=== PATIENT | female | born 1965 | race Caucasian/White ===

== ENCOUNTER 2016-12-30 15:09 | Emergency (ER) | payer OTHER ==
--- NOTE | 2016-12-30 16:00 | DIAGNOSTIC IMAGING REPORT ---
PROCEDURE: XR CHEST 2 VIEW INDICATION: CHEST PAIN TECHNIQUE: PA and lateral views. COMPARISON: None. FINDINGS: Lungs are clear. Heart and mediastinum are normal. Thorax is normal. IMPRESSION: 1. Negative chest.
--- NOTE | 2016-12-30 17:59 | DIAGNOSTIC IMAGING REPORT ---
PROCEDURE: CTA THORAX ABDOMEN INDICATION: DISSECTION TECHNIQUE: 100 ml of Isovue 370 injected intravenously and axial images were obtained through the entire thorax and abdomen with 3D MIP sagittal and coronal reformations. COMPARISON: None. FINDINGS: THORACIC AORTA AND GREAT VESSELS: Normal without calcific atherosclerosis, dissection or aneurysm. THORAX: Lungs are clear. No adenopathy or effusion. Normal pulmonary arteries. Normal heart size. Mild degenerative changes of the spine. ABDOMEN AORTA AND MESENTERIC VESSELS: Normal abdominal aorta without calcific atherosclerosis, dissection or aneurysm. Normal celiac trunk, SMA, FAWAD and iliac vessels. ABDOMEN: Cholecystectomy. Liver, pancreas, spleen, adrenal glands and the right kidney are normal. Severe left renal atrophy versus hypoplasia. Nonspecific bowel gas pattern. Normal appendix. Bones are unremarkable. IMPRESSION: 1. No evidence of an aortic dissection or aneurysm. 2. Cholecystectomy 3. Severe left renal atrophy versus hypoplasia 4. Results discussed with CHERYL Rogers All CT scans at this facility use dose modulation, iterative reconstruction, and/or weight-based dosing when appropriate to reduce radiation dose to as low as reasonably achievable.
--- NOTE | 2016-12-30 18:05 | ED ORDER SUMMARY ---
..... Patient: ADITYA CHAVEZ OrderSheet [facility] VisitID: [id number] [address] [place] [address] 51y, F Registration Date/Time: 12/30/2016 ORDER SHEET Weight: 58.9 kg (stated) Allergies: No Known Drug Allergy GENERAL ORDERS: Chest 2V Urgent (15:36 12/30/2016 EKoroleva P.A.-C) (Ack 15:40 KHoerner) (15:49 MCook R.N.) Cardiac Panel Stat (15:37 12/30/2016 EKoroleva P.A.-C) (Ack 15:40 KHoerner) (15:43 MCook R.N.) Plate Maker (Continuous) (15:37 12/30/2016 EKoroleva P.A.-C) (15:39 AMcQuoid ER Tech1) EKG - ER Stat (15:37 12/30/2016 EKoroleva P.A.-C) (15:39 AMcQuoid ER Tech1) CTA Thorax/Abdomen (No) (see lab) Urgent (16:38 12/30/2016 EKoroleva P.A.-C) (Ack 16:40 AMcQuoid ER Tech1) (17:39 KHoerner) MEDICATION ORDERS: KCl PO 40 meq (NOW) (17:25 12/30/2016 EKoroleva P.A.-C) (Ack 17:55 Kalina R.N.) (17:59 Kalina R.N.) IV FLUIDS: IV Saline Lock (15:37 12/30/2016 EKoroleva P.A.-C) (15:43 MCook R.N.) Metoprolol IV 5 mg (HIGH ALERT MEDICATION, NOW) (15:37 12/30/2016 EKoroleva P.A.-C) (Ack 15:49 MCook R.N.) (16:01 LWhalen R.N.) ORDER SHEET NOTES: [Electronically signed by Gladys Hernández PJoseA.-C (18:38 12/30/2016)] [Electronically signed by Stanley Parra R.N. (19:12/30/2016)] [Electronically locked/signed by Stanley Parra R.N. (:12/30/2016)]
--- NOTE | 2016-12-30 18:05 | ED NURSING NOTES ---
Clinical Report - Nurses [facility] [address] [place] [address] 12/30/2016 15:17 Patient: ADITYA CHAVEZ [facility]#: [id number] TRIAGE Triage time 15:Dec 30 2016. Acuity: LEVEL 2. Chief Complaint: CHEST PAIN and DISCOMFORT. JP COMA SCORE: Jp Coma Scale: 15- eyes open spontaneously (4); best verbal response- oriented x 4 (5); best motor response- obeys commands (6). --15:29 Stanley Parra R.N. 15:12/30/16. BP: 190/126. HR: 80. RR: 18. O2 saturation: 98%. Additional comments: left arm . --15:29 Stanley Parra R.N. 15:12/30/16. BP: 184/94. HR: 63. RR: 18. O2 saturation: 98%. Additional comments: right sided BP. --15:29 Stanley Parra R.N. 15:12/30/16. Temp: 98.0 F. Pain level now 01/15. --18:32 Stanley Parra R.N. Weight: 58.9 kg stated. Height/Length: 61 inches Per Patient. BMI: 24.5. --15:29 Stanley Parra R.N. Medications HCTZ. --15:27 Stanley Parra R.N. Metoprolol Tartrate Oral. --15:27 Stanley Parra R.N. ZyrTEC Allergy Oral. --15:27 Stanley Parra R.N. Allergies No Known Drug Allergy. --15:27 Stanley Parra R.N. History Arrived by private vehicle. Historian: patient. Accompanied by family. ( Has been having chest pain for 4 days. Has had a very stressful past couple of weeks with of father and with medical problems. No activity makes pain worse.). She has had a cough. No nausea, vomiting or fever. PAST MEDICAL HX: Hypertension. No history of diabetes mellitus, heart disease or lung disease. Immunizations: up-to-date. The patient is post-menopausal. SOCIAL HX: Never smoker. No alcohol use or drug use. SELF HARM ASSESSMENT: A self harm assessment was performed. The patient answered "yes" to the question "Have you recently felt down, depressed, or hopeless?" and "no" to the question "Do you have thoughts of harming or killing yourself?". FALL RISK ASSESSMENT: Fall risk assessment completed. No fall risk identified. NUTRITIONAL RISK ASSESSMENT: The nutritional risk assessment revealed no deficiencies. FUNCTIONAL ASSESSMENT: Functional assessment: no impairments noted. LEARNING NEEDS ASSESSMENT: The learning needs assessment revealed no barriers. ABUSE ASSESSMENT: Abuse assessment: (yes) The patient was asked "Do you feel safe in your home?". SKIN INTEGRITY ASSESSMENT: Skin integrity risk assessment completed. No skin integrity risk identified. --15:29 Stanley Parra R.N. PROBLEMS: Gallstone(s). High blood pressure . --15:28 Stanley Parra R.N. ADDITIONAL SURGERIES: Gallbladder Surgery. --15:28 Stanley Parra R.N. Interventions ID band on patient. --15:29 Stanley Parra R.N. PHYSICAL ASSESSMENT Ambulatory to room. GENERAL / NEURO / PSYCH: Alert. Oriented X 4. Appears in no acute distress. Appears anxious. HEENT: Mucous membranes are pink. RESPIRATORY: Respirations not labored. Chest nontender. Breath sounds within normal limits. CVS: Normal sinus rhythm noted. Heart sounds within normal limits. Pulses within normal limits. Capillary refill less than 2 seconds. GI / : Abdomen soft and nontender. ( Last BM yesterday and normal.). EXTREMITIES: No lower extremity edema. SKIN: Skin is warm and dry. Normal skin turgor. Skin is non-tender. --15:30 Stanley Parra R.N. NURSING PROGRESS NOTES 15:12/30/16. BP: 197/102. HR: 72. RR: 18. O2 saturation: 98%. Pain level now 7/10. --15:31 Stanley Parra R.N. 15:29 12/30/16. BP: 184/94. HR: 63. RR: 18. O2 saturation: 98%. Additional comments: right sided BP. --15:31 Stanley Parra R.N. The plan of care for this patient has been created. campus monitor, pulse oximeter and NIBP monitor placed on patient. Patient gowned. Reassurance given. Call light placed in reach. Side rails up x 1. Bed placed in lowest position. Brakes of bed on. --15:32 Stanley Parra R.N. 15:28. EKG was performed by a tech. --15:40 McQuoid, Bharati, ER Tech1 15:43 12/30/2016 Site #1 started via IV in the right antecubital space with an 20g angiocath, with aseptic technique and good blood return; two attempts. Blood drawn: rainbow set. Labeled in the presence of the patient and sent to the lab. Saline lock flushed with 10 mL saline. --15:43 Erich España R.N. Patient transported to radiology by stretcher with tech. --15:46 Erich España R.N. Patient returned from radiology by stretcher with tech. --15:50 Erich España R.N. 16:01 12/30/2016 Metoprolol (Metoprolol Tartrate) IVP 5 mg given over 2 minute(s) via site #1. Allergies verified and confirmed 5 rights. IV patency established. IV site checked: no pain, redness, or swelling. IV flushed thoroughly pre- and post-medication administration. --16:01 Stanley Parra R.N. 16:15 12/30/16. BP: 146/84. HR: 55. RR: 18. O2 saturation: 98%. 16:00 12/30/16. BP: 139/88. HR: 56. RR: 18. O2 saturation: 98%. 15:45 12/30/16. BP: 148/89. HR: 56. RR: 18. O2 saturation: 100%. --16:28 Stanley Parra R.N. 17:59 12/30/2016 KCL (Potassium Chloride ER) PO Tablets 40 meq given. Allergies verified and confirmed 5 rights. --17:59 Shivani Nieves R.N. 18:00 12/30/16. BP: 126/84. HR: 58. RR: 18. O2 saturation: 98%. 17:30 12/30/16. BP: 135/91. HR: 60. RR: 18. O2 saturation: 98%. 17:00 12/30/16. BP: 129/84. HR: 58. RR: 20. O2 saturation: 97%. --18:31 Stanley Parra R.N. DISPOSITION / DISCHARGE 18:19 12/30/2016 Site #1 removed upon discharge. Catheter intact. Pressure dressing applied. --18:29 Stanley Parra R.N. Departure time: 18:Dec 30 2016. Condition at departure: improved. No learning barriers present. Discharge instructions provided and reviewed with the patient. Reviewed warnings. Reviewed medication(s). Treatments reviewed. Reviewed referrals. Verbalized understanding. Written instructions provided in Ukrainian. The patient was discharged home and accompanied by spouse. She left the Emergency Department ambulatory and via private vehicle. Spouse driving. --18:29 Stanley Parra R.N. 18:28 12/30/16. BP: 129/84. HR: 56. RR: 18. O2 saturation: 98%. Temp: 98.6 F. Pain level now 0/10. --18:29 Stanley Parra R.N. Locked/Released at 12/30/2016 19:09 by Stanley Parra R.N.
--- NOTE | 2016-12-30 18:05 | ED ORDER SUMMARY ---
..... Patient: ADITYA CHAVEZ OrderSheet [facility] VisitID: [id number] [address] [place] [address] 51y, F Registration Date/Time: 12/30/2016 ORDER SHEET Weight: 58.9 kg (stated) Allergies: No Known Drug Allergy GENERAL ORDERS: Chest 2V Urgent (15:36 12/30/2016 EKoroleva P.A.-C) (Ack 15:40 KHoerner) (15:49 MCook R.N.) Cardiac Panel Stat (15:37 12/30/2016 EKoroleva P.A.-C) (Ack 15:40 KHoerner) (15:43 MCook R.N.) Rod And Tube Straightener (Continuous) (15:37 12/30/2016 EKoroleva P.A.-C) (15:39 AMcQuoid ER Tech1) EKG - ER Stat (15:37 12/30/2016 EKoroleva P.A.-C) (15:39 AMcQuoid ER Tech1) CTA Thorax/Abdomen (No) (see lab) Urgent (16:38 12/30/2016 EKoroleva P.A.-C) (Ack 16:40 AMcQuoid ER Tech1) (17:39 KHoerner) MEDICATION ORDERS: KCl PO 40 meq (NOW) (17:25 12/30/2016 EKoroleva P.A.-C) (Ack 17:55 Kalina R.N.) (17:59 Kalina R.N.) IV FLUIDS: IV Saline Lock (15:37 12/30/2016 EKoroleva P.A.-C) (15:43 MCook R.N.) Metoprolol IV 5 mg (HIGH ALERT MEDICATION, NOW) (15:37 12/30/2016 EKoroleva P.A.-C) (Ack 15:49 MCook R.N.) (16:01 LWhalen R.N.) ORDER SHEET NOTES: [Electronically signed by Gladys Hernández PJoseA.-C (18:38 12/30/2016)] [Electronically signed by Stanley Parra R.N. (19:12/30/2016)] [Electronically locked/signed by Stanley Parra R.N. (:12/30/2016)]
--- NOTE | 2016-12-30 18:05 | ED CLINICAL REPORT ---
Clinical Report - Physicians/Mid Levels [facility] [address] [place] [address] 12/30/2016 15:17 Patient: [facility] [id number] Time Seen: 15:39 Dec 30 2016. Arrived- By private vehicle. Historian- patient. HISTORY OF PRESENT ILLNESS Chief Complaint: CHEST PAIN. It is described as located in the central chest and left chest area. This started 4 days and is still present. No nausea, difficulty breathing or diaphoresis. (Patient reports off and on chest pain that is sharp in nature and left-sided localized over the last 4 days. Onset of symptoms was this Tuesday, had some pain on Tuesday and again this morning, with low activity. Patient denies any shortness of breath. Denies any nausea or vomiting. Patient under increased stress under the circumstances her father has recently been disease, and has been with multiple medical problems. Patient with no recent travel. Denies history of PE. Denies history of similar pain. Patient was long-standing history of hypertension.). REVIEW OF SYSTEMS No fever, cough, pedal edema, abdominal pain or black stools. All systems otherwise negative, except as recorded above. PAST HISTORY Problems: Hypertension. Gallstone(s). High blood pressure . Additional Surgeries: Gallbladder Surgery. Medications: ZyrTEC Allergy Oral. Metoprolol Tartrate Oral. HCTZ. Allergies: No Known Drug Allergy. SOCIAL HISTORY Never smoker. No alcohol use or drug use. ADDITIONAL NOTES The nursing notes have been reviewed. PHYSICAL EXAM Vital Signs: 12/30/2016 15:29 BP: 184/94. HR: 63. RR: 18. O2 saturation: 98%. 12/30/2016 15:22 BP: 190/126. HR: 80. RR: 18. O2 saturation: 98%. Appearance: Alert. Eyes: Eyes normal inspection. ENT: Nose normal. Pharynx normal. No pharyngeal erythema or tonsillar exudate. Neck: Normal inspection. No meningeal signs. CVS: Normal heart rate and rhythm. Heart sounds normal. Respiratory: No respiratory distress. Breath sounds normal. No chest pain reproduced on physical exam or decreased air movement. Abdomen: Soft and nontender. No rebound tenderness or distention. Back: Normal external inspection. Skin: Skin warm. Normal skin color. Neuro: Oriented X 3. LABS, X-RAYS, AND EKG EKG: EKG time: (1528). No acute process. No acute ischemia. Rate: 71. Normal P waves. Normal YNES. Normal QRS complex. Normal axis. Normal ST and T waves and QT. The study has been interpreted contemporaneously. The study has been independently viewed by me. The EKG appears to be a good tracing. Chest X-ray: (IMPRESSION: 1. Negative chest. Electronically Final signed by:Raulito Floyd MD 12/30/2016 4:01:05 PM). Laboratory Tests: CBC w Diff: (MEHNAZ: 12/30/2016 15:37) ( MsgRcvd 12/30/2016 15:53) Final results Test Result Flag Units (Reference) WHITE BLOOD COUNT 6.6 K/uL (4.5-11.5) RED BLOOD COUNT 4.88 M/uL (4.00-5.20) HEMOGLOBIN 15.1 gm/dL (12.0-16.0) HEMATOCRIT 44.1 % (36.0-46.0) MEAN CELL VOLUME 90 fL (80-100) MEAN CORPUSCULAR HGB 31 pg (26-34) MEAN CORPUSCULAR HGB CONC 34 g/dL (31-37) RED CELL DISTRIBUTION WIDTH 12.4 % (11.6-14.8) PLATELET COUNT 253 K/uL (150-400) NEUTROPHIL % 55.9 % (50-75) LYMPH % 36.6 % (25-40) MONO % 5.0 % (3-14) EOSINOPHIL % 2.0 % (0-4) BASOPHIL % 0.5 % (0-2) . PROGRESS AND PROCEDURES Course of Care: Patient with ongoing chest pain over the last few weeks. In the ER her pain is limited. Given her hypertensive status, we'll obtain CT to rule out dissection as patient has been having pain radiating to her back. Her stress has been increased. She is not short of breath, resting comfortably, side and heart rate are greatly here in the emergency department. Given duration of symptoms ACS, PE less likely. Patient with no signs of infectious process. Nonreproducible pain. 12/30/2016 18:28 BP: 129/84. HR: 56. RR: 18. O2 saturation: 98%. Temp: 98.6 F. 12/30/2016 16:15 BP: 146/84. HR: 55. RR: 18. O2 saturation: 98%. 12/30/2016 16:00 BP: 139/88. HR: 56. RR: 18. O2 saturation: 98%. 12/30/2016 15:45 BP: 148/89. HR: 56. RR: 18. O2 saturation: 100%. 12/30/2016 15:31 BP: 197/102. HR: 72. RR: 18. O2 saturation: 98%. Patient is stable. Symptoms better. Patient/family counseled. Differential Diagnosis: I considered muscle strain, costochondritis, pleurisy, intercostal neuritis, herpes zoster, myocardial infarction, intermediate coronary syndrome, unstable angina, aortic dissection, mitral valve prolapse, pulmonary embolism, pneumonia, pneumothorax, lung cancer and gastroesophageal reflux disease as a possible cause of chest pain in this patient. This is a partial list of diagnoses considered. Disposition: Discharged. CLINICAL IMPRESSION Atypical chest pain Uncontrolled hypertension. Hypokalemia INSTRUCTIONS Avoid stimulants (such as cigarettes, coffee, cold medicines, sinus medicines, street drugs). Follow a low salt diet. Do not smoke. No alcohol. Prescription Medications: Klor-Con 10 mEq: take 1 tablet orally every 8 hours. Dispense twenty (20). No refills. Substitution is permissible. Follow-up: Follow up with your doctor in five days. (Electronically signed by Gladys Hernández P.A.-C 12/30/2016 18:38)
--- NOTE | 2016-12-30 19:10 | ED MAR SUMMARY ---
..... Medication Administration Record [facility] [address] [place] [address] Patient: ADITYA CHAVEZ Visit ID: [id number] 51y, F Weight: 58.9 kg Height/Length: 61 in BMI: 24.5 ALLERGIES: No Known Drug Allergy Given 16:01 12/30/2016 Stanley Parra RRoberta Medication Administered: METOPROLOL [IVP] (METOPROLOL TARTRATE), Dose: 5 mg IVP over 2 minute(s), Site: #1 right AC. Medication Ordered: Metoprolol IV 5 mg (HIGH ALERT MEDICATION, NOW). Given 17:59 12/30/2016 Shivani Nieves R.N. Medication Administered: KCL [PO] (POTASSIUM CHLORIDE ER), Dose: 40 meq Tablets PO. Medication Ordered: KCl PO 40 meq (NOW).
--- NOTE | 2016-12-30 19:10 | ED MED RECONCILIATION SUMMARY ---
Patient: ADITYA CHAVEZ Medication Reconciliation Report [facility] VisitID: [id number] [address] [place] [address] 51y, F Registration Date/Time: 12/30/2016 Weight: 58.9 kg Height/Length: 61 in. BMI: 24.5 ALLERGIES: No Known Drug Allergy The patient's Home Medications are listed below: THE FOLLOWING MEDICATIONS NEED TO BE RECONCILED: HCTZ Metoprolol Tartrate Oral ZyrTEC Allergy Oral The source(s) of the original Home Medication information: Not obtained. The following Medications were given to the patient in the Emergency Department: Metoprolol [IVP] IVP 5 mg, administered: 12/30/2016 4:01:00 PM KCL [PO] PO 40 meq, administered: 12/30/2016 5:59:00 PM The following Medications were prescribed to the patient: Klor-Con 10 mEq: take 1 tablet orally every 8 hours. Dispense twenty (20). No refills. Substitution is permissible. -- Gladys Hernández, PJoseA.-C
--- NOTE | 2016-12-30 19:10 | ED MED RECONCILIATION SUMMARY ---
Patient: ADITYA CHAVEZ Medication Reconciliation Report [facility] VisitID: [id number] [address] [place] [address] 51y, F Registration Date/Time: 12/30/2016 Weight: 58.9 kg Height/Length: 61 in. BMI: 24.5 ALLERGIES: No Known Drug Allergy The patient's Home Medications are listed below: THE FOLLOWING MEDICATIONS NEED TO BE RECONCILED: HCTZ Metoprolol Tartrate Oral ZyrTEC Allergy Oral The source(s) of the original Home Medication information: Not obtained. The following Medications were given to the patient in the Emergency Department: Metoprolol [IVP] IVP 5 mg, administered: 12/30/2016 4:01:00 PM KCL [PO] PO 40 meq, administered: 12/30/2016 5:59:00 PM The following Medications were prescribed to the patient: Klor-Con 10 mEq: take 1 tablet orally every 8 hours. Dispense twenty (20). No refills. Substitution is permissible. -- Gladys Hernández, PJoseA.-C
--- NOTE | 2016-12-30 19:10 | ED DISCHARGE INSTRUCTIONS ---
Patient: ADITYA CHAVEZ General Instructions [facility] VisitID: [id number] [address] [place] [address] 51y, F Registration Date/Time: 12/30/2016 Atypical chest pain Uncontrolled hypertension. Hypokalemia INSTRUCTIONS Avoid stimulants (such as cigarettes, coffee, cold medicines, sinus medicines, street drugs). Follow a low salt diet. Do not smoke. No alcohol. Prescription Medications: Klor-Con 10 mEq: take 1 tablet orally every 8 hours. Dispense twenty (20). No refills. Substitution is permissible. Follow-up: Follow up with your doctor in five days. ADDITIONAL INFORMATION Chest Pain, Noncardiac Based on your visit today, the exact cause of your chest pain is not certain. Your condition does not seem serious and your pain does not appear to be coming from your heart. However, sometimes the signs of a serious problem take more time to appear. Therefore, please watch for the warning signs listed below. Home Care: Rest today and avoid strenuous activity. Take any prescribed medicine as directed. Follow Up with your doctor or this facility as instructed or if you do not start to feel better within 24 hours. Get Prompt Medical Attention if any of the following occur: A change in the type of pain: if it feels different, becomes more severe, lasts longer, or begins to spread into your shoulder, arm, neck, jaw or back Shortness of breath or increased pain with breathing Cough with dark colored sputum (phlegm) or blood Weakness, dizziness, or fainting Fever of 100.4F (38C) or higher, or as directed by your healthcare provider Swelling, pain or redness in one leg Chest Pain, Uncertain Cause Chest pain can happen for a number of reasons. Sometimes the cause can not be determined. If yourcondition does not seem serious, and your pain does not appear to be coming from your heart, your doctor may recommend watching it closely. Sometimes the signs of a serious problem take more time to appear. Therefore, watch for the warning signs listed below. Home care After your visit, follow these recommendations: Rest today and avoid strenuous activity. Take any prescribed medicine as directed. Follow-up care Follow up with your doctor or this facility as instructed or if you do not start to feel better within 24 hours. Call 911 Get immediate medical attention if any of the following occur: A change in the type of pain: if it feels different, becomes more severe, lasts longer, or begins to spread into your shoulder, arm, neck, jaw or back Shortness of breath or increased pain with breathing Weakness, dizziness, or fainting Rapid heart beat Get prompt medical attention Call your doctor right away if any of the following occur: Cough with dark colored sputum (phlegm) or blood Fever of 100.4F(38C) or higher, or as directed by your health care provider Swelling, pain or redness in one leg High Blood Pressure --Established High Blood Pressure (Hypertension) is a chronic disease. The cause is unknown in most cases. It can usually be controlled with lifestyle changes and/or medicines. Symptoms of high blood pressure may include headache, dizziness, visual changes, chest pain and shortness of breath. Sometimes it causes no symptoms at all. However, even if there are no symptoms, untreated high blood pressure increases the risk of heart attack, also known as acute myocardial infarction, or AMI, and stroke. It is a serious health risk and should not be ignored. A normal blood pressure is 120/80 or less. The first (top) number is the "systolic" pressure. The second (bottom) number is the "diastolic" pressure. Hypertension exists when either the top number is 140 or higher, OR the bottom number is 90 or higher on repeated measurements. Home Care: All patients with high blood pressure should do the following to lower their pressure. If you are on medicines, then these methods may reduce or eliminate your need for medicines in the future. Begin a weight loss program if you are overweight. Reduce your salt intake. Avoid high salt foods (olives, pickles, smoked meats, salted potato chips, etc.). Do not add salt to your food at the table. Use only small amounts of salt when cooking. Begin an exercise program. Discuss with your doctor what type of exercise program would be best for you. It doesn't have to be difficult. Even brisk walking for 20 minutes three times a week is a good form of exercise. Avoid medicines which contain heart stimulants. This includes many cold and sinus decongestant pills and sprays as well as diet pills. Check the warnings about hypertension on the label. Stimulants such as amphetamine or cocaine could be lethal for someone with hypertension. Never take these. Limit your caffeine intake or switch to caffeine-free products. Stop smoking. If you are a long-time smoker, this can be hard. Enroll in a stop-smoking program to improve your chance of success. Learning how to handle stress better is an important part of any program to lower blood pressure. Learn about relaxation methods such as meditation, yoga or biofeedback. If medicines were prescribed, take them exactly as directed. Missing doses may cause your blood pressure get out of control. Consider buying an automatic blood pressure machine (available at most pharmacies). Use this to monitor your blood pressure at home and report the results to your doctor. Follow Up: Regular visits to your own physician for blood pressure checks and medicine adjustment is an important part of your care. Make a follow-up appointment as directed by our staff. Get Prompt Medical Attention if any of the following occur: Chest pain or shortness of breath Severe headache Throbbing or rushing sound in the ears Nosebleed Sudden severe abdominal pain Extreme drowsiness, confusion or fainting Dizziness or vertigo (dizziness with spinning sensation) Weakness of an arm or leg or one side of the face Difficulty with speech or vision Hypertension, Out Of Control (Established) Your blood pressure was unusually high today. This can occur as a result of missing doses of your blood pressure medicine. Some asthma inhalers, decongestants, diet pills, and street drugs such as cocaine and amphetamine can worsen hypertension. An increase in body weight, increase in salt intake, smoking, and caffeine are other causes. Emotional upset or acute pain can cause a sudden rapid rise in blood pressure which may return to normal after a period of rest. A normal blood pressure is less than 140/90. The first (top) number is the systolic pressure. The second (bottom) number is the diastolic pressure. Hypertension exists when either the top number is 140 or higher, OR the bottom number is 90 or higher on repeated measurements. Home Care: All patients with high blood pressure should do the following to lower their pressure. If you are on blood pressure medicines, then these methods may reduce or eliminate your need for medicines in the future. Begin a weight-loss program if you are overweight. Reduce your salt intake. Avoid high-salt foods (olives, pickles, smoked meats, salted potato chips, etc.). Do not add salt to your food at the table. Use only small amounts of salt when cooking. Begin an exercise program. Discuss with your doctor what type of exercise program would be best for you. It doesnt have to be difficult. Even brisk walking for 20 minutes3 times a week is a good form of exercise. Avoid medicines which contain heart stimulants. This includes many cold and sinus decongestant pills and sprays as well as diet pills. Check the warnings about hypertension on the label. Stimulants such as amphetamine or cocaine could be lethal for someone with hypertension. Never take these. Limit your caffeine intake or switch to decaf. Stop smoking. If you are a long-time smoker, this can be hard. Enroll in a stop-smoking program to improve your chance of success. Talk to your physician about ways to improve your chance of success. Learning how to handle stress better is an important part of any program to lower blood pressure. Learn about relaxation methods such as meditation, yoga, or biofeedback. If medicines were prescribed, take them exactly as directed. Missing doses may cause your blood pressure to get out of control. Consider buying an automatic blood pressure machine (available at many pharmacies). Use this to monitor your blood pressure and report to your doctor. Follow Up: Regular visits to your own doctor for blood pressure checks and medicine adjustment is an important part of your care. Make a follow-up appointment as directed by our staff. Get Prompt Medical Attention if any of the following occur: Chest, arm, shoulder, neck, or upper back pain Shortness of breath Severe headache Throbbing or rushing sound in the ears Nosebleed Extreme drowsiness, confusion, or fainting Dizziness or vertigo (dizziness with spinning sensation) Weakness of an arm or leg or one side of the face Difficulty with speech or vision Hypokalemia Hypokalemia means a low level of potassium in the blood. This most often occurs in patients who take diuretics (water pills). It can also occur due to severe vomiting or diarrhea. A mild case usually causes no symptoms. It is only found with blood testing. More severe potassium loss causes generalized weakness, muscle or abdominal cramping, heart palpitations (rapid or irregular heartbeats) and low blood pressure. Home Care: 1) Take any potassium supplements prescribed. 2) Eat foods rich in potassium. The highest amount is found in artichoke, baked potatoes, spinach, cantaloupe, honeydew melon, cod, halibut, salmon, and scallops. White, red, or negron beans are also very good sources. A modest amount is found in orange juice, bananas, carrots, and tomato juice. 3) Certain types of diuretics (water pills), such as Lasix (furosemide), require that you take potassium supplements for as long as you take the diuretic pills. If you are taking a diuretic, discuss the need for potassium supplements with your doctor. Follow Up with your doctor for a repeat blood test within the next week or as advised by our staff. Get Prompt Medical Attention if any of the following occur: -- Increased weakness -- Feeling dizzy -- Irregular heartbeat, extra beats or very fast heart rate -- Fainting spell [place] Diet A bland diet is used for patients with an upset stomach. It consists of foods that are mild and easy to digest. It is better to eat small frequent meals rather than three large meals a day. BEVERAGES OK: Fruit juices, non-caffeinated teas and coffee, non-carbonated ferrara AVOID: Carbonated beverage, caffeinated tea and coffee, all alcoholic beverages BREAD OK: Refined white, wheat or rye bread, yoko or soda crackers, Radha toast, plain rolls, bagels AVOID: Whole-grain bread CEREAL OK: Refined cereals: cooked or ready to eat AVOID: Whole grain cereals and granola, or those containing bran, seeds or nuts DESSERTS OK: Peanut butter and all others except those to "avoid" AVOID: Chocolate, cocoa, coconut, popcorn, nuts, seeds, jam, marmalade FRUITS OK: Canned, cooked, frozen or fresh fruits without seeds or tough skin AVOID: Olives, skin and seeds of fruit MEATS OK: All fresh or preserved meat, fish and fowl AVOID: Any that are prepared with those spices to "avoid" CHEESE & EGGS OK: Eggs, cottage cheese, cream cheese, other cheeses AVOID: All cheeses made with those spices to "avoid" POTATOES & PASTA OK: Potato, rice, macaroni, noodles, spaghetti AVOID: None SOUPS OK: All soups without heavy seasoning AVOID: Soups made with those spices to "avoid" VEGETABLES OK: Canned, cooked, fresh or frozen mildly flavored vegetables without seeds, skins or coarse fiber AVOID: Vegetables prepared with those spices to "avoid"; skin and seeds of vegetables and those with coarse fiber SPICES OK: Salt, lemon and [place] juice, vinegar, all extracts, adri, cinnamon, thyme, mace, allspice, paprika AVOID: [place] powder, cloves, pepper, seed spices, garlic, gravy pickles, highly seasoned salad dressings Clear Liquid Diet Clear liquids are any liquid that you can see through as well as those that are very easy to digest. This is used while the body is recovering from irritation or infection of the stomach or intestinal tract. It may also be used before special procedures or surgery. This diet is to be used no more than three days. You may include the following items. Adults Adults should drink a total of 23 quarts of liquid per day. It may be easier to drink small frequent servings rather than a few large ones. Liquids can include: Fruit juices.Strained orange juice or lemonade (no pulp), apple, grape and cranberry juice, clear fruit drinks, sports drinks Beverages.Sport drinks, sodas, mineral water (plain or flavored), tea, black coffee, liquid gelatin (add twice the recommended amount of water) Soups.Clear broth, consomm, bouillon Desserts.Plain gelatin, popsicles, fruit juice bars Children Over 2 years old The following liquids are acceptable for children over age 2: Fruit juices.Strained orange juice or lemonade (no pulp), apple, grape and cranberry juice, clear fruit drinks Beverages. Sports drinks, sodas, mineral water (plain or flavored), tea, liquid gelatin (add twice the recommended amount of water) Soups. Clear broth, consomm, bouillon Desserts. Plain gelatin, popsicles, fruit juice bars Children under 2 years old Oral rehydration fluids such are available at drug stores and most grocery stores without a prescription. You have been given the following additional information: Chest Pain, Noncardiac Chest Pain, Uncertain Cause Hypertension, Established Hypertension, Established, Out Of Control Hypokalemia Diet, [place] (Adult) Diet, Clear Liquid (Electronically signed by Gladys Hernández P.A.-C 12/30/2016 18:38)
--- NOTE | 2016-12-30 19:10 | ED MAR SUMMARY ---
..... Medication Administration Record [facility] [address] [place] [address] Patient: ADITYA CHAVEZ Visit ID: [id number] 51y, F Weight: 58.9 kg Height/Length: 61 in BMI: 24.5 ALLERGIES: No Known Drug Allergy Given 16:01 12/30/2016 Stanley Parra RRoberta Medication Administered: METOPROLOL [IVP] (METOPROLOL TARTRATE), Dose: 5 mg IVP over 2 minute(s), Site: #1 right AC. Medication Ordered: Metoprolol IV 5 mg (HIGH ALERT MEDICATION, NOW). Given 17:59 12/30/2016 Shivani Nieves R.N. Medication Administered: KCL [PO] (POTASSIUM CHLORIDE ER), Dose: 40 meq Tablets PO. Medication Ordered: KCl PO 40 meq (NOW).
== END 2016-12-30 18:30 | disposition home or self-care (01) ==
LOC: ED SRH 15:09
DX: R07.89 Other chest pain (principal); I10 Essential (primary) hypertension; E87.6 Hypokalemia
CPT/HCPCS: 90100; 90616; 92610; 92720; 95059